=== PATIENT | female | born 1970 | race Caucasian/White ===

== ENCOUNTER 2020-06-11 08:29 | Outpatient (CLI) | payer OTHER ==
--- NOTE | 2020-06-11 09:47 | Ultrasound Report ---
ULTRASOUND SOFT TISSUE HEAD AND NECK HISTORY: Localized swelling, mass and lump, neck TECHNIQUE: Grayscale ultrasound with color Doppler imaging. COMPARISON: None. FINDINGS: Targeted ultrasound was performed at the site of a palpable mass in the left neck. The images demonst rate this to be thyroid in origin. The left thyroid lobe is mildly enlarged measuring 5.4 x 2.8 x 3.4 cm. There is a large solid mass in the left thyroid lobe measuring 4.4 x 2.4 x 3.4 cm. No additional left thyroid lesion. . - NODULE # 1 -- Location: left mid -- Size: 4.4 x 2.4 x 3.4 cm -- Composition: Solid = 2 points -- Echogenicity: Hyperechoic or Isoechoic = 1 point -- Shape: [id number] = 0 points -- Margin: Smooth = 0 points -- Echogenic Foci: None = 0 points -- Additional Findings: The lesion appears hypervascular on color Doppler interrogation. -- ACR TI-RADS Score = 3. -- ACR TI-RADS Category = TR-3 (3 points). Note: Nodule size based on mean (average) size of 3 dimensions. Note: Nodules < 1 cm do not typically require follow-up or FNA unless there are suspicious features ( THAI, 2015) ACR TI-RADS Thyroid Nodule Recommendations TI-RADS 1 (0 points) -- Benign. No FNA or follow-up. TI-RADS 2 (1-2 points) -- Not suspicious. No FNA or follow-up. TI-RADS 3 (3 points) -- Mildly suspicious. Follow up in 1 year if 1.5 cm. FNA if 2.5 cm. TI-RADS 4 (4-6 points) -- Moderately suspicious. Follow up in 1 year if 1.0 cm. FNA if 1.5 cm. TI-RADS 5 (7+ points) -- Highly suspicious. Follow up in 1 year if 0.5 cm. FNA if 1.0 cm. The right thyroid lobe was incompletely imaged although it appears normal size, contour and echotextu re with no mass evident. The thyroid isthmus is unremarkable. IMPRESSION: 4.4 x 2.4 x 3.4 cm left thyroid lobe mass as described. Ultrasound-guided FNA is recommended. Please see thyroid nodule recommendations above. Signer Name: Leonard Harper Jr, MD Signed: 06/11/2020 9:41 AM Workstation Name: [id number]
== END 2020-06-11 08:30 | disposition home or self-care (01) ==
LOC: MAMMO 08:29
PROVIDERS: ATTEND Internal Medicine
DX: Z12.31 Encounter for screening mammogram for malignant neoplasm of breast (principal); E04.9 Nontoxic goiter, unspecified; E04.1 Nontoxic single thyroid nodule; R22.1 Localized swelling, mass and lump, neck
CPT/HCPCS: 76536; 77067

== ENCOUNTER 2020-10-20 10:41 | Outpatient (CLI) | payer OTHER ==
--- NOTE | 2020-10-20 12:37 | Vascular Lab Report ---
DUPLEX DOPPLER LOWER EXTREMITY VEINS, BILATERAL INDICATION / CLINICAL INFORMATION: Lower extremity pain TECHNIQUE: Duplex doppler imaging was performed through the veins of both lower extremities using krunal ous compression and other maneuvers. COMPARISON: None available. FINDINGS: RIGHT COMMON FEMORAL VEIN: Negative. RIGHT FEMORAL VEIN: Negative. RIGHT POPLITEAL VEIN: Negative. RIGHT CALF VEINS: Negative. LEFT COMMON FEMORAL VEIN: Negative. LEFT FEMORAL VEIN: Negative. LEFT POPLITEAL VEIN: Negative. LEFT CALF VEINS: Negative. ADDITIONAL FINDINGS: None. IMPRESSION: No sonographic evidence for DVT in either lower extremity. Signer Name: Duncan Wheeler MD Signed: 10/20/2020 12:32 PM Workstation Name: [id number]
== END 2020-10-20 10:42 | disposition home or self-care (01) ==
LOC: VAS 10:41
PROVIDERS: ATTEND Surgery
DX: M79.604 Pain in right leg (principal); M79.605 Pain in left leg
CPT/HCPCS: 93970